=== PATIENT | male | born 1965 | race Caucasian/White ===

== ENCOUNTER 2019-04-18 10:19 | Day surgery (SDC) | payer OTHER ==
[2019-04-17 10:45] VITALS: BMI 32.8
[~2019-04-18 10:19] MED LIST: LACTATED RINGERS 1,000 ML IV SCH
[2019-04-18 10:42] VITALS: TEMP 98.2
[2019-04-18] MEDS ORDERED: LIDOCAINE 1% 20 ML VIAL (10MG/ML) FOR IV START INTRADERMA ONE (10:50)
[2019-04-18] MEDS ORDERED: LIDOCAINE 1% INJ 10MG/ML (20 ML MDV) ONE (11:20)
[2019-04-18] MEDS ORDERED: PROPOFOL 10 MG/ML 20 ML VIAL IV ONE (11:20)
--- NOTE | 2019-04-18 11:49 | P.PCN ---
Date of Procedure: 04/18/19 Description of Procedure: BRIEF HISTORY: 53-year-old male presenting evaluation of intermittent rectal pain with palpation colonoscopy. She was examined in office with no fissures or masses on rectal exam. He has a history of colonic polyps with last colonoscopy 4 years ago. Denies any change in bowel habits or blood per rectum. PROCEDURE PERFORMED: Colonoscopy with polypectomy. PREOPERATIVE DIAGNOSIS: Rectal pain, history of polyps, last colonoscopy 4 years ago. ESTIMATED BLOOD LOSS: Minimal. IV sedation per Anesthesia. PROCEDURE: After informed consent was obtained, the patient, was brought into the endoscopy unit. IV sedation was administered by Anesthesia under continuous monitoring. Digital rectal examination was normal. Initially the Olympus CF-190 flexible video colonoscope was then inserted in the rectum, gradually advanced into the cecum without any difficulty. Careful examination was performed as the scope was gradually being withdrawn. Ileocecal valve and the appendiceal orifice were visualized and appeared normal. Prep was excellent. Mucosa of the cecum, ascending colon, transverse colon, descending colon, sigmoid colon, and rectum appeared normal. Diminutive 3 mm transverse colon sessile polyp removed with cold forcep polypectomy. 2 diminutive sessile descending colon polyps measuring 2 mm removed with cold forcep polypectomy. Retroflexion was performed in the rectum and no lesions were seen, mild internal hemorrhoids. The patient tolerated the procedure well. IMPRESSION: Normal-appearing colon from rectum to cecum. 3 diminutive polyps measuring 2-3 mm removed with cold forceps. Mild internal hemorrhoids. RECOMMENDATIONS: Findings of this examination were discussed with the patient and his . Okay to resume regular diet. Trial of hyoscyamine was given in the outpatient setting if rectal pain recurs. Anticipate repeat colonoscopy in 5 years pending pathology from polypectomies. Patient to follow up with gastroenterology as needed.
[2019-04-18 12:15] VITALS: BP 107/65; PULSE 78; RESP 18
== END 2019-04-18 13:00 | disposition home or self-care (01) ==
LOC: ORWHC2ENDO 10:19
PROVIDERS: ATTEND Internal Medicine
DX: D12.3 Benign neoplasm of transverse colon (principal); D12.4 Benign neoplasm of descending colon; K64.8 Other hemorrhoids; I10 Essential (primary) hypertension; E78.5 Hyperlipidemia, unspecified; Z86.010 Personal history of colon polyps; Z79.899 Other long term (current) drug therapy; Z98.890 Other specified postprocedural states
CPT/HCPCS: 88305; 45380; J2001; J2704

== ENCOUNTER → 2019-08-08 | Outpatient (CLI) | payer OTHER ==
--- NOTE | 2019-08-09 11:50 | XR ---
EXAMINATION TYPE: XR abdomen 2V DATE OF EXAM: 08/08/2019 4:06 PM CLINICAL HISTORY: Right upper quadrant pain and shortness of breath TECHNIQUE: Upright and supine images of the abdomen were obtained. COMPARISON: None. FINDINGS: Scattered gas is seen in nondilated small bowel loops. Gas and fecal material is seen in no ndilated colon. There is no abnormal calcification appreciated. No evidence of pneumoperitoneum. The lung bases are clear and the osseous structures are intact. The lung bases are clear and the osseous structures are intact. Mild multilevel degenerative change of the spine. IMPRESSION: Nonobstructive bowel gas pattern.
== END | disposition home or self-care (01) ==
LOC: RADXRYALE 15:50
PROVIDERS: ATTEND Physician Assistant Medical
DX: R10.11 Right upper quadrant pain (principal); R06.02 Shortness of breath
CPT/HCPCS: 74019

== ENCOUNTER 2020-09-14 23:57 | Observation (INO) | payer OTHER ==
--- NOTE | 2020-09-15 00:08 | ED ---
Chest Pain HPI - General Chief Complaint: Chest Pain Stated Complaint: Chest Pain Time Seen by Provider: 09/15/20 00:07 Source: patient, RN notes reviewed, old records reviewed Mode of arrival: wheelchair Limitations: no limitations - History of Present Illness Initial Comments: This is a 55-year-old male DF for evaluation patient Dese for evaluation re garding abdominal pain severe right upper quadrant and epigastric abdominal pain radiating to his back rating to his right shoulder. Sudden onset of pain tonight and is progressively worsening. Positive vomiting. No recent fevers or no other complaints. MD Complaint: other (Epigastric and right upper quadrant abdominal pain) -: hour(s) Onset: during rest Pain Location: epigastric Pain Radiation: RUE, back Severity: moderate Severity scale (1-10): 7 Quality: sharp Consistency: constant Improves With: nothing Worsens With: nothing Context: other (None) Anginal Symptoms: nausea, vomiting Other Symptoms: acid taste in mouth, burping Treatments Prior to Arrival: none - Related Data Home Medications Medication Instructions Recorded Confirmed Fenofibrate,Micronized 200 mg PO DAILY 04/17/19 09/15/20 [Fenofibrate] Calcium Polycarbophil [Fiber-Lax] 625 mg PO DAILY 09/15/20 09/15/20 Cholecalciferol [Vitamin D3 (25 50 mcg PO DAILY 09/15/20 09/15/20 Mcg = 1000 Iu)] Olmesartan/Amlodipin/Hcthiazid 1 tab PO DAILY 09/15/20 09/15/20 [Olmesartan/Amlodipin/Hcthiazid 40-5-12.5 MG] Allergies Allergy/AdvReac Type Severity Reaction Status Date / Time No Known Allergies Allergy Verified 09/15/20 07:33 Review of Systems ROS Statement: Those systems with pertinent positive or pertinent negative responses have been documented in the HPI. ROS Other: All systems not noted in ROS Statement are negative. EKG Findings - EKG Comments: EKG Findings:: EKG sinus rhythm 73 TX 162 QRS 94 QTC 440 Past Medical History Past Medical History: Hyperlipidemia, Hypertension History of Any Multi-Drug Resistant Organisms: None Reported Past Surgical History: Hernia Repair Additional Past Surgical History / Comment(s): Colonoscopy Past Anesthesia/Blood Transfusion Reactions: No Reported Reaction Past Psychological History: No Psychological Hx Reported Smoking Status: Never smoker Past Alcohol Use History: Occasional Past Drug Use History: None Reported - Past Family History Mother Family Medical History: Cancer General Exam Limitations: no limitations General appearance: alert, in no apparent distress, anxious Head exam: Present: atraumatic, normocephalic, normal inspection Eye exam: Present: normal appearance, PERRL, EOMI. Absent: scleral icterus, conjunctival injection, periorbital swelling ENT exam: Present: normal exam, mucous membranes moist Neck exam: Present: normal inspection. Absent: tenderness, meningismus, lymphadenopathy Respiratory exam: Present: normal lung sounds bilaterally. Absent: respiratory distress, wheezes, rales, rhonchi, stridor Cardiovascular Exam: Present: regular rate, normal rhythm, normal heart sounds. Absent: systolic murmur, diastolic murmur, rubs, gallop, clicks GI/Abdominal exam: Present: soft, tenderness (RUQ), normal bowel sounds. Absent: distended, guarding, rebound, rigid Extremities exam: Present: normal inspection, full ROM, normal capillary refill. Absent: tenderness, pedal edema, joint swelling, calf tenderness Back exam: Present: normal inspection Neurological exam: Present: alert, oriented X3, CN II-XII intact Psychiatric exam: Present: normal affect, normal mood Skin exam: Present: warm, dry, intact, normal color. Absent: rash Course Vital Signs 09/14/20 09/15/20 09/15/20 23:58 00:15 00:30 Temperature 98.1 F Pulse Rate 82 74 76 Pulse Rate [ Pulse Oximetery ] Respiratory 18 18 19 Rate Blood Pressure 189/97 180/108 172/101 Blood Pressure [Left Arm] O2 Sat by Pulse 96 94 L 94 L Oximetry 09/15/20 09/15/20 09/15/20 01:05 02:23 03:00 Temperature 98.0 F Pulse Rate 79 75 Pulse Rate [ 89 Pulse Oximetery ] Respiratory 18 18 17 Rate Blood Pressure 157/93 160/94 Blood Pressure 136/81 [Left Arm] O2 Sat by Pulse 95 93 L 95 Oximetry - Reevaluation(s) Reevaluation #1: Medical record is reviewed Patient still with significant pain here in the ER Patient informed of results and questions are answered Spoke with Dr. Chen who will see patient Chest Pain MDM - [facility] 55 male DF for evaluation signs and symptoms of acute gallbladder colic, cholelithiasis. Patient be admitted for antibiotics pain control and surgical management evaluation Disposition Clinical Impression: Acute cholecystitis Disposition: ADMITTED IP TO THIS HOSP Condition: Good Is patient prescribed a controlled substance at d/c from ED?: No
[2020-09-15] MEDS ORDERED: MORPHINE SULFATE 4 MG/ML SYRINGE IVP STA (00:22)
[2020-09-15] MEDS ORDERED: SODIUM CHLORIDE 0.9% 1,000 ML IV STA (00:22)
[2020-09-15] MEDS ORDERED: PANTOPRAZOLE 40 MG/10 ML VIAL IVP STA (00:22)
[2020-09-15] MEDS ORDERED: ONDANSETRON 4 MG/2 ML VIAL IVP STA ×2 (00:22→02:16)
[2020-09-15 00:30] LABS: Basophils # (A) 0.1 k/uL (0-0.2); Basophils % (A) 1 %; Eosinophils # (A) 0.1 k/uL (0-0.7); Eosinophils % (A) 1 %; HCT 45.4 % (39.0-53.0); Lymphocytes % (A) 10 %; MCH 29.6 pg (25.0-35.0); MCHC 35.2 g/dL (31.0-37.0); Mean Platelet Volume 8.7; Monocytes # (A) 0.4 k/uL (0-1.0); Monocytes % (A) 4 %; Neutrophils # (A) 8.3 k/uL (1.3-7.7); Neutrophils % (A) 84 %; Platelet Count 216 k/uL (150-450); RDW 12.5 % (11.5-15.5)
[2020-09-15 00:46] LABS: Albumin 4.7 g/dL (3.5-5.0); Calcium 10.1 mg/dL (8.4-10.2); Magnesium 1.8 mg/dL (1.6-2.3); Potassium 3.9 mmol/L (3.5-5.1); Total Bilirubin 0.5 mg/dL (0.2-1.3); Total Protein 7.9 g/dL (6.3-8.2)
[2020-09-15 00:54] LABS: D-Dimer 0.44 mg/L FEU (<0.60); INR 0.9 (<1.2); Prothrombin Time 10.2 sec (9.0-12.0)
--- NOTE | 2020-09-15 01:22 | US ---
EXAM: US Abdomen Limited, Gallbladder CLINICAL HISTORY: ITS.REASON US Reason: pain TECHNIQUE: Real-time ultrasound of the right upper quadrant with image documentation. COMPARISON: No relevant prior studies available. FINDINGS: Liver: The liver is hyperechoic, measuring 16.2 cm in length. There is a focal hypoechoic area adjacent to the gallbladder, measuring 1.8 x 1. 5 x 2.4 cm. Gallbladder: Echogenic gallstones are noted with posterior shadowing in the gallbladder. The gallbladder wall measures 2.6 mm. No pericholecystic fluid identified. There is a reported positive sonographic Murcia sign. Common bile duct: The common bile duct is not identified. Pancreas: The pancreas is poorly identified secondary to bowel gas pattern. Right kidney: The right kidney measures 13.1 x 5.9 x 5.3 cm. Inferior vena cava: The IVC is unremarkable. Free fluid: No free fluid. IMPRESSION: 1. Cholelithiasis noted in the gallbladder. There is no gallbladder wall thickening or pericholecystic fluid. However, there is a reported positive sonographic Murcia sign. Findings are somewhat equivocal sonographically. However, acute cholecystitis cannot be excluded given these findings. Please correlate with clinical findings. Functional radionuclide imaging of the gallbladder may be performed in clinically equivocal cases. 2. The common bile duct is not definitively identified; however, no definite biliary dilatation identified. 3. Hepatic steatosis identified with incidental focal fatty sparing adjacent to the gallbladder, a common location for this appearance, as detailed above.
--- NOTE | 2020-09-15 02:11 | CT ---
EXAM: CT Angiography Chest With Intravenous Contrast CLINICAL HISTORY: ITS.REASON CT Reason: pain TECHNIQUE: Axial computed tomographic angiography images of the chest with intravenous contrast. CTDI is 33.635 mGy and DLP is 1307.65 mGy-cm. This CT exam was performed using one or more of the following dose reduction techniques: automated exposure control, adjustment of the mA and/or kV according to patient size, and/or use of iterative reconstruction technique. MIP reconstructed images were created and reviewed. COMPARISON: No relevant prior studies available. FINDINGS: Limitations: There is respiratory artifact which degrades image quality on multiple image slices, limiting evaluation of the distal subsegmental pulmonary artery branches, where affected. Pulmonary arteries: Accounting for limitations with respiratory artifact, there is no evidence for pulmonary embolism. Aorta: No acute findings. No thoracic aortic aneurysm. Lungs: Minimal dependent subsegmental changes noted bilaterally. No focal consolidation. Pleural space: Unremarkable. No significant effusion. No pneumothorax. Heart: Unremarkable. No cardiomegaly. No significant pericardial effusion. Bones/joints: Incidental mild hypertrophic degenerative changes noted at multiple levels of the thoracic spine. No acute osseous abnormality. No dislocation. Soft tissues: Unremarkable. Lymph nodes: Unremarkable. No enlarged lymph nodes. IMPRESSION: 1. Accounting for limitations with respiratory artifact, there is no evidence for pulmonary embolism. 2. Minimal dependent subsegmental presumed atelectasis noted bilaterally. No focal consolidation. No pleural effusion or pneumothorax.
--- NOTE | 2020-09-15 02:14 | CT ---
EXAM: CT Abdomen and Pelvis With Intravenous Contrast CLINICAL HISTORY: ITS.REASON CT Reason: pain TECHNIQUE: Axial computed tomography images of the abdomen and pelvis with intravenous contrast. CTDI is 33.635 mGy and DLP is 1307.65 mGy-cm. This CT exam was performed using one or more of the following dose reduction techniques: automated exposure control, adjustment of the mA and/or kV according to patient size, and/or use of iterative reconstruction technique. COMPARISON: No relevant prior studies available. FINDINGS: Limitations: There is respiratory artifact which degrades image quality on multiple image slices. Lung bases: For findings regarding the lung bases, please see the CT report of the chest performed the same day. ABDOMEN: Liver: Unremarkable. No mass. Gallbladder and bile ducts: Hyperdense sludge or noncalcified gallstones noted posteriorly in the gallbladder. No CT evidence for pericholecystic fluid or biliary dilatation. Pancreas: Unremarkable. No mass. No ductal dilation. Spleen: Unremarkable. No splenomegaly. Adrenals: Unremarkable. No mass. Kidneys and ureters: The kidneys demonstrate normal enhancement without mass, hydronephrosis or obstructive nephrolithiasis. Delayed phase imaging demonstrates normal excreted contrast in the renal collecting systems and visualized proximal ureters. Stomach and bowel: Scattered fecal material in distal small bowel loops is nonspecific and presumed normal variation. No evidence for bowel obstruction. No focal bowel mucosal abnormality. PELVIS: Appendix: A normal caliber appendix is noted in the right lower quadrant. Bladder: Unremarkable. No mass. Reproductive: Unremarkable as visualized. ABDOMEN and PELVIS: Intraperitoneal space: Unremarkable. No free air. No significant fluid collection. Bones/joints: No acute fracture. No dislocation. Soft tissues: Unremarkable. Vasculature: Unremarkable. No abdominal aortic aneurysm. Lymph nodes: Unremarkable. No enlarged lymph nodes. IMPRESSION: A normal caliber appendix is noted in the right lower quadrant. No bowel obstruction or focal bowel mucosal abnormality. No free intraperitoneal fluid or pneumoperitoneum.
[2020-09-15] MEDS ORDERED: LORazepam 2 MG/ML INJ IV STA (02:16)
[2020-09-15] MEDS ORDERED: SODIUM CHLORIDE 0.9% 500 ML 500 ML IV STA (02:16)
[2020-09-15] MEDS ORDERED: KETOROLAC 15 MG/ML 1 ML VIAL IVP STA (02:17)
[2020-09-15] MEDS ORDERED: SODIUM CHLORIDE 0.9% 1,000 ML IV ONE (02:27)
[2020-09-15] MEDS: HYDROmorphone 1 MG/ML 1 ML SYRINGE IVP PRN ×3 (09:37→19:55)
--- NOTE | 2020-09-15 12:25 | P.CONS ---
History of Present Illness - Reason for Consult Management of perioperative to hypertensive medications - History of Present Illness Pleasant 55-year-old female came in with complaints of breath intractable nausea vomiting severe abdominal pain and the right upper quadrant predominantly radiating to the back. Patient is found to have cholelithiasis with positive cholecystitis on ultrasound of the abdomen chest x-ray showed some atelectasis. Patient was admitted to general surgery service for possible cholecystectomy. Patient denied any fever chills, doesn't have any leukocytosis patient has a negative d-dimer. Patient is presently on Protonix not on any antibiotics at this time creatinine is mildly elevated to 1.25 patient is receiving IV fluids. Patient's creatinine last April was 1.1 and before that it was 0.9. Review of Systems REVIEW OF SYSTEMS: CONSTITUTIONAL: No fever, no malaise, no fatigue. HEENT: No recent visual problems or hearing problems. Denied any sore throat. CARDIOVASCULAR: No chest pain, orthopnea, PND, no palpitations, no syncope. PULMONARY: No shortness of breath, no cough, no hemoptysis. GASTROINTESTINAL: As mentioned in HPI NEUROLOGICAL: No headaches, no weakness, no numbness. HEMATOLOGICAL: Denies any bleeding or petechiae. GENITOURINARY: Denies any burning micturition, frequency, or urgency. MUSCULOSKELETAL/RHEUMATOLOGICAL: Denies any joint pain, swelling, or any muscle pain. ENDOCRINE: Denies any polyuria or polydipsia. The rest of the 14-point review of systems is negative. Past Medical History Past Medical History: Hyperlipidemia, Hypertension History of Any Multi-Drug Resistant Organisms: None Reported Past Surgical History: Hernia Repair Additional Past Surgical History / Comment(s): Colonoscopy Past Anesthesia/Blood Transfusion Reactions: No Reported Reaction Past Psychological History: No Psychological Hx Reported Smoking Status: Never smoker Past Alcohol Use History: Occasional Past Drug Use History: None Reported - Past Family History Mother Family Medical History: Cancer Medications and Allergies Home Medications Medication Instructions Recorded Confirmed Type Fenofibrate,Micronized 200 mg PO DAILY 04/17/19 09/15/20 History [Fenofibrate] Calcium Polycarbophil [Fiber-Lax] 625 mg PO DAILY 09/15/20 09/15/20 History Cholecalciferol [Vitamin D3 (25 50 mcg PO DAILY 09/15/20 09/15/20 History Mcg = 1000 Iu)] Olmesartan/Amlodipin/Hcthiazid 1 tab PO DAILY 09/15/20 09/15/20 History [Olmesartan/Amlodipin/Hcthiazid 40-5-12.5 MG] Allergies Allergy/AdvReac Type Severity Reaction Status Date / Time No Known Allergies Allergy Verified 09/15/20 07:33 Physical Exam Vitals: Vital Signs Temp Pulse Pulse Resp BP BP Pulse Ox 09/15/20 09:00 20 09/15/20 08:28 97.6 F 63 20 144/87 95 09/15/20 03:00 98.0 F 89 17 136/81 95 09/15/20 02:23 75 18 160/94 93 L 09/15/20 01:05 79 18 157/93 95 09/15/20 00:30 76 19 172/101 94 L 09/15/20 00:15 74 18 180/108 94 L 09/14/20 23:58 98.1 F 82 18 189/97 96 Intake and Output 09/14/20 09/15/20 09/15/20 22:59 06:59 14:59 Other: Voiding Method Toilet Toilet # Voids 1 Weight 102.058 kg PHYSICAL EXAMINATION: GENERAL: The patient is alert and oriented x3, not in any acute distress. Obese HEENT: Pupils are round and equally reacting to light. EOMI. No scleral icterus. No conjunctival pallor. Normocephalic, atraumatic. No pharyngeal erythema. No thyromegaly. CARDIOVASCULAR: S1 and S2 present. No murmurs, rubs, or gallops. PULMONARY: Chest is clear to auscultation, no wheezing or crackles. ABDOMEN: Soft, mild tenderness in the right upper quadrant, nondistended, normoactive bowel sounds. No palpable organomegaly. MUSCULOSKELETAL: No joint swelling or deformity. EXTREMITIES: No cyanosis, clubbing, or pedal edema. NEUROLOGICAL: Gross neurological examination did not reveal any focal deficits. SKIN: No rashes. Results CBC & Chem 7: 09/15/20 00:21 09/15/20 00:21 Labs: Abnormal Lab Results - Last 24 Hours (Table) 09/15/20 09/15/20 Range/Units 00: 00:21 Neutrophils # 8.3 H (1.3-7.7) k/uL Glucose 165 H (74-99) mg/dL Assessment and Plan Plan: Cholelithiasis per with the possibility of cholecystitis: Management as per primary service. -Hypertension to prevent perioperative hypotension also sick due to renal failure on hold off on GUIDO inhibitor and diuretic continue with amlodipine. -Mild acute renal failure expected improvement with IV fluids probably prerenal azotemia from nausea vomiting -Ruled out pulmonary embolism -Obesity
[2020-09-15] MEDS: amLODIPine 5 MG TAB PO SCH (12:53)
[2020-09-15] MEDS ORDERED: ONDANSETRON 4 MG/2 ML VIAL IVP PRN (13:07)
--- NOTE | 2020-09-15 13:15 | P.GSHP ---
History of Present Illness H&P Date: 09/15/20 CHIEF COMPLAINT: Abdominal pain HISTORY OF PRESENT ILLNESS: This is a 55-year-old male with a known history of hyperlipidemia and hypertension. He presents to the emergency room with complaints of nausea, vomiting and severe right upper quadrant abdominal pain. Abdominal ultrasound reveals cholelithiasis. No gallbladder wall thickening or pericholecystic fluid. Positive Murcia sign. Patient is admitted to the hospital for cholecystitis. Patient denies any fever, chills or sweats. PAST MEDICAL HISTORY: See list. PAST SURGICAL HISTORY: See list. MEDICATIONS: See list. ALLERGIES: See list. SOCIAL HISTORY: No illicit drug use. REVIEW OF SYSTEMS: CONSTITUTIONAL: Denies fever or chills. HEENT: Denies blurred vision, vision changes, or eye pain. Denies hemoptysis CARDIOVASCULAR: Denies chest pain or pressure. RESPIRATORY: No shortness of breath. GASTROINTESTINAL: See HPI for pertinent findings HEMATOLOGIC: Denies bleeding disorders. GENITOURINARY: Denies any blood in urine or increased urinary frequency. SKIN: Denies pruitis. Denies rash. PHYSICAL EXAM: VITAL SIGNS: Reviewed GENERAL: Well-developed in no acute distress. HEENT: No sclera icterus. Extraocular movements grossly intact. Moist buccal mucosa. Head is atraumatic, normocephalic. No nasal drainage. ABDOMEN: Soft. Nondistended. Right upper quadrant tenderness NEUROLOGIC: Alert and oriented. Cranial nerves II through XII grossly intact. LABORATORY DATA: WBC 10 hemoglobin 16 d-dimer 0.44 creatinine 1.25 LFTs normal Lipase normal IMAGING: Abdominal ultrasound reveals cholelithiasis. No gallbladder wall thickening or pericholecystic fluid. Positive Murcia sign. Acute cholecystitis cannot be excluded. Common Bile duct is not definitively identified. However no definite biliary dilation identified. Hepatic steatosis identified with incidental focal fatty sparing adjacent to the gallbladder Chest CTA negative for PE. Atelectasis bilaterally CT of abdomen and pelvis normal caliber appendix noted in the right lower quadrant. No bowel obstruction or focal bowel mucosal abnormality. No free intraperitoneal fluid or pneumoperitoneum ASSESSMENT: 1. Right upper quadrant abdominal pain with nausea and vomiting 2. Cholecystitis 3. Cholelithiasis PLAN: -Patient scheduled for laparoscopic cholecystectomy tomorrow 09/16/[address] Chen -Continue a low-fat diet for today and then nothing by mouth after midnight -Consult medicine service for medical management -Continue pain medication as needed -Continue Zofran as needed for nausea and vomiting -Continue IV fluids -GI prophylaxis Protonix and DVT prophylaxis subcu heparin Physician Astronomy Professor note has been reviewed by physician. Signing provider agrees with the documented findings, assessment, and plan of care. Past Medical History Past Medical History: Hyperlipidemia, Hypertension History of Any Multi-Drug Resistant Organisms: None Reported Past Surgical History: Hernia Repair Additional Past Surgical History / Comment(s): Colonoscopy Past Anesthesia/Blood Transfusion Reactions: No Reported Reaction Past Psychological History: No Psychological Hx Reported Smoking Status: Never smoker Past Alcohol Use History: Occasional Past Drug Use History: None Reported - Past Family History Mother Family Medical History: Cancer Medications and Allergies Home Medications Medication Instructions Recorded Confirmed Type Fenofibrate,Micronized 200 mg PO DAILY 04/17/19 09/15/20 History [Fenofibrate] Calcium Polycarbophil [Fiber-Lax] 625 mg PO DAILY 09/15/20 09/15/20 History Cholecalciferol [Vitamin D3 (25 50 mcg PO DAILY 09/15/20 09/15/20 History Mcg = 1000 Iu)] Olmesartan/Amlodipin/Hcthiazid 1 tab PO DAILY 09/15/20 09/15/20 History [Olmesartan/Amlodipin/Hcthiazid 40-5-12.5 MG] Allergies Allergy/AdvReac Type Severity Reaction Status Date / Time No Known Allergies Allergy Verified 09/15/20 07:33 Surgical - Exam Vital Signs Temp Pulse Resp BP Pulse Ox 98.1 F 82 18 189/97 96 09/14/20 23:58 09/14/20 23:58 09/14/20 23:58 09/14/20 23:58 09/14/20 23:58 Results - Labs 09/15/20 00:21 09/15/20 00:21 Abnormal Lab Results - Last 24 Hours (Table) 09/15/20 09/15/20 Range/Units 00:21 00:21 Neutrophils # 8.3 H (1.3-7.7) k/uL Glucose 165 H (74-99) mg/dL Diabetes panel 09/15/20 Range/Units 00:21 Sodium 138 (137-145) mmol/L Potassium 3.9 (3.5-5.1) mmol/L Chloride 105 (98-107) mmol/L Carbon Dioxide 25 (22-30) mmol/L BUN 20 (9-20) mg/dL Creatinine 1.25 (0.66-1.25) mg/dL Glucose 165 H (74-99) mg/dL Calcium 10.1 (8.4-10.2) mg/dL AST 24 (17-59) U/L ALT 39 (4-49) U/L Alkaline Phosphatase 54 (38-126) U/L Total Protein 7.9 (6.3-8.2) g/dL Albumin 4.7 (3.5-5.0) g/dL Calcium panel 09/15/20 Range/Units 00:21 Calcium 10.1 (8.4-10.2) mg/dL Albumin 4.7 (3.5-5.0) g/dL Pituitary panel 09/15/20 Range/Units 00:21 Sodium 138 (137-145) mmol/L Potassium 3.9 (3.5-5.1) mmol/L Chloride 105 (98-107) mmol/L Carbon Dioxide 25 (22-30) mmol/L BUN 20 (9-20) mg/dL Creatinine 1.25 (0.66-1.25) mg/dL Glucose 165 H (74-99) mg/dL Calcium 10.1 (8.4-10.2) mg/dL Adrenal panel 09/15/20 Range/Units 00:21 Sodium 138 (137-145) mmol/L Potassium 3.9 (3.5-5.1) mmol/L Chloride 105 (98-107) mmol/L Carbon Dioxide 25 (22-30) mmol/L BUN 20 (9-20) mg/dL Creatinine 1.25 (0.66-1.25) mg/dL Glucose 165 H (74-99) mg/dL Calcium 10.1 (8.4-10.2) mg/dL Total Bilirubin 0.5 (0.2-1.3) mg/dL AST 24 (17-59) U/L ALT 39 (4-49) U/L Alkaline Phosphatase 54 (38-126) U/L Total Protein 7.9 (6.3-8.2) g/dL Albumin 4.7 (3.5-5.0) g/dL
[2020-09-15] MEDS: PIPERACILLIN-TAZOBACTAM 3.375 GM in SODIUM CHLORIDE 0.9% 100 ML IVPB SCH (16:44)
[2020-09-15] MEDS: HEPARIN SODIUM,PORCINE 5,000 UNIT/ML 1 ML VIAL SQ SCH (20:04)
[2020-09-16] MEDS: PIPERACILLIN-TAZOBACTAM 3.375 GM in SODIUM CHLORIDE 0.9% 100 ML IVPB SCH ×3 (00:40→16:26)
[2020-09-16] MEDS ORDERED: LIDOCAINE 1% (10MG/ML) FOR IV START INTRADERMA PRN (06:26)
[2020-09-16] MEDS ORDERED: DEXAMETHASONE SOD PHOSPHATE 4 MG/ML 1 ML VIAL IV ONE (06:26)
[2020-09-16 06:38] LABS: Basophils % (A) 1 %; Eosinophils # (A) 0.1 k/uL (0-0.7); Eosinophils % (A) 2 %; HCT 42.2 % (39.0-53.0); HGB 14.5 gm/dL (13.0-17.5); Lymphocytes # (A) 1.6 k/uL (1.0-4.8); Lymphocytes % (A) 21 %; MCH 29.4 pg (25.0-35.0); MCHC 34.3 g/dL (31.0-37.0); MCV 85.8 fL (80.0-100.0); Mean Platelet Volume 8.8; Monocytes # (A) 0.6 k/uL (0-1.0); Monocytes % (A) 9 %; Neutrophils % (A) 66 %; Platelet Count 187 k/uL (150-450); RBC 4.92 m/uL (4.30-5.90); RDW 12.7 % (11.5-15.5); WBC 7.5 k/uL (3.8-10.6)
[2020-09-16] MEDS: HYDROmorphone 1 MG/ML 1 ML SYRINGE IVP PRN ×3 (07:27→21:02)
[2020-09-16] MEDS ORDERED: IV FLUID CONTINUATION 1,000 ML IV ONE (09:29)
[2020-09-16] MEDS: HEPARIN SODIUM,PORCINE 5,000 UNIT/ML 1 ML VIAL SQ SCH ×2 (09:38→21:03)
[2020-09-16] MEDS: LACTATED RINGERS 1,000 ML IV SCH (10:13)
[2020-09-16 10:43] LABS: African American GFR (CKD) 97.1 (60.0-200.0); Anion Gap 10.1 mmol/L (4.00-12.00); Calcium 9.4 mg/dL (8.7-10.3); Carbon Dioxide 24.9 mmol/L (21.6-31.8); Non-African American GFR(CKD) 83.8 (60.0-200.0); Potassium 3.9 mmol/L (3.5-5.5)
[2020-09-16] MEDS ORDERED: fentaNYL (PF) 50 MCG/ML 2 ML AMP ONE (11:04)
[2020-09-16] MEDS ORDERED: PHENYLEPHRINE 10 MG/ML VIAL ONE (11:04)
[2020-09-16] MEDS ORDERED: GLYCOPYRROLATE 0.2 MG/ML 2 ML VIAL ONE (11:04)
[2020-09-16] MEDS ORDERED: LIDOCAINE 1% INJ 10MG/ML (20 ML MDV) ONE (11:04)
[2020-09-16] MEDS ORDERED: PROPOFOL 10 MG/ML 20 ML VIAL IV ONE (11:04)
[2020-09-16] MEDS ORDERED: NEOSTIGMINE 1 MG/ML 10 ML VIAL ONE (11:04)
[2020-09-16] MEDS ORDERED: MIDAZOLAM 2 MG/2 ML VIAL ONE (11:04)
[2020-09-16] MEDS ORDERED: ROCURONIUM 10 MG/ML (10 ML VIAL) IV ONE (11:04)
[2020-09-16] MEDS ORDERED: KETOROLAC 15 MG/ML 1 ML VIAL ONE (11:04)
[2020-09-16] MEDS ORDERED: SUCCINYLCHOLINE CHLORIDE 100 MG/5 ML SYR IV ONE (11:04)
[2020-09-16] MEDS ORDERED: HYDROmorphone (PF) 1 MG/ML ONE (11:04)
[2020-09-16] MEDS ORDERED: HYDROmorphone 0.5 MG/0.5 ML SYRINGE IVP ONE ×2 (12:09→12:21)
[2020-09-16] MEDS ORDERED: SODIUM CHLORIDE 0.9% 1,000 ML IV ONE (12:26)
--- NOTE | 2020-09-16 14:31 | P.PN ---
Subjective Progress Note Date: 09/16/20 - Reason for Consult Management of perioperative to hypertensive medications - History of Present Illness Pleasant 55-year-old female came in with complaints of breath intractable nausea vomiting severe abdominal pain and the right upper quadrant predominantly radiating to the back. Patient is found to have cholelithiasis with positive cholecystitis on ultrasound of the abdomen chest x-ray showed some atelectasis. Patient was admitted to general surgery service for possible cholecystectomy. Patient denied any fever chills, doesn't have any leukocytosis patient has a negative d-dimer. Patient is presently on Protonix not on any antibiotics at this time creatinine is mildly elevated to 1.25 patient is receiving IV fluids. Patient's creatinine last April was 1.1 and before that it was 0.9. 09/16/2020 Patient is seen and evaluated in follow-up currently awaiting to undergo cholecystectomy with surgery today. Patient has been nothing by mouth since midnight. Ghazala slightly improved at 1.0. Current sodium is 140, potassium is 3.9, white blood count is 7.5, currently hemoglobin is 14.5. Patient is maintained on IV antibiotics in the form of Zosyn and will continue at this time. IV fluids have been discontinued and we'll continue to monitor closely. Patient will likely be initiated on clear liquids status post surgery and will monitor for tolerance. Incentive spirometer ordered and reeducated patient to continue using at least 10 times every hour while awake. Review of systems: Constitutional: No reports of fatigue, fever, or chills Cardiovascular: No reports of chest pain or palpitations Respiratory: No reports of shortness of breath or cough GI: Reports intermittent nausea : No reports of dysuria or retention Neurovascular: No reports of weakness or numbness All medications have been reviewed Objective - Vital Signs Vital signs: Vital Signs Temp 97.1 F L 09/16/20 09:24 Pulse 86 09/16/20 09:24 Resp 16 09/16/20 09:24 BP 143/85 09/16/20 09:24 Pulse Ox 94 L 09/16/20 09:24 Intake & Output 09/15/20 09/16/20 09/16/20 18:59 06:59 18:59 Intake Total 1000 600 Output Total 5 Balance 1000 595 Intake: IV 800 600 Sodium Chloride 0.9% 1, 800 000 ml @ 100 mls/hr IV . Q10H ONE Rx#:[id number] Oral 200 Output: Estimated Blood Loss 5 Other: Voiding Method Toilet Toilet # Voids 1 2 - Exam GENERAL: The patient is alert and oriented x3, not in any acute distress. Obese HEENT: Pupils are round and equally reacting to light. EOMI. No scleral icterus. No conjunctival pallor. Normocephalic, atraumatic. No pharyngeal erythema. No thyromegaly. CARDIOVASCULAR: S1 and S2 present. No murmurs, rubs, or gallops. PULMONARY: Chest is clear to auscultation, no wheezing or crackles. ABDOMEN: Soft, mild tenderness in the right upper quadrant, nondistended, normoactive bowel sounds. No palpable organomegaly. MUSCULOSKELETAL: No joint swelling or deformity. EXTREMITIES: No cyanosis, clubbing, or pedal edema. NEUROLOGICAL: Gross neurological examination did not reveal any focal deficits. SKIN: No rashes. - Labs CBC & Chem 7: 09/16/20 05:11 09/16/20 05:11 Assessment and Plan Assessment: -Cholelithiasis with the possibility of cholecystitis: Status post cholecystectomy. Postop Day 0 -Hypertension to prevent postoperative hypotension hold off on GUIDO inhibitor and diuretic, Norvasc has been resumed will repeat a.m. labs and monitor vital signs closely to resume other home medications -Mild acute renal failure expected improvement with IV fluids probably prerenal azotemia from nausea and vomiting, improving current creatinine is 1.0 with a BUN of 12 -Ruled out pulmonary embolism -Obesity Plan: Continue with current medications and symptomatic treatment. Will continue to monitor vital signs and labs closely and repeat to monitor kidney functions tomorrow. Patient is maintained on IV antibiotics and will continue. Will continue to follow along closely with surgery as patient is postop cholecystectomy. The patient will be started on clear liquids and continue to monitor for tolerance. Incentive spirometer ordered and instructed the patient to continue using 10 times every hour while awake. Amlodipine has been resumed and will continue to monitor blood pressure. Further recommendations to follow. Thank you for this consultation
[2020-09-16] MEDS: amLODIPine 5 MG TAB PO SCH (15:44)
[2020-09-16] MEDS: PANTOPRAZOLE 40 MG/10 ML VIAL IVP SCH (15:44)
--- NOTE | 2020-09-16 15:52 | P.OP ---
Date of Procedure: 09/16/20 Preoperative Diagnosis: Cholecystitis Postoperative Diagnosis: Cholecystitis Procedure(s) Performed: Laparoscopic cholecystectomy Anesthesia: PAULA Surgeon: Prosper Chen Estimated Blood Loss (ml): 5 Pathology: other (Gallbladder) Condition: stable Disposition: PACU Description of Procedure: The patient was placed on the operating table. The patient received a general endotracheal tube anesthesia. The patients abdomen was prepped and draped in the usual sterile fashion. Through an infraumbilical stab incision, the fascia of the anterior abdominal wall was grasped with a pair of Kochers and then the Veress needle was placed in the peritoneal cavity. Position of the Veress needle was confirmed with positive drop test. The abdomen was then insufflated. After adequate insufflation, the 10 mm trocar was placed in the peritoneal cavity. Following this the laparoscope was placed in the peritoneal cavity. The patient was placed in the head-up, right side up position and then a 5 mm trocar was placed in the right lateral and right subcostal position under direct visualization. A 8 mm trocar was placed in the epigastric position. The gallbladder was grasped in the fundus and infundibulum. Traction on the gallbladder was placed in the lateral and the cephalad positions. The triangle of Calot was visualized.. The cystic duct was bluntly dissected until the union of the cystic duct and common bile duct was seen. A critical view of safety was achieved. The cystic duct was then divided and sealed with the Harmonic scissors. A PDS Endoloop was then placed throughout the cystic duct stump. The cystic artery divided and sealed with the Harmonic scissors. The gallbladder was then removed from the liver bed using Harmonic scissors. The gallbladder was then extracted through the epigastric port site. Operative field was checked for any bleeding spots and Harmonic scissors was used to coagulate the liver bed. The abdomen was irrigated. The trocars were removed. The skin was closed using interrupted 3-0 Vicryl suture. Dermabond dressing were applied. The patient tolerated the procedure well.
[2020-09-17] MEDS: PIPERACILLIN-TAZOBACTAM 3.375 GM in SODIUM CHLORIDE 0.9% 100 ML IVPB SCH ×2 (00:39→09:33)
[2020-09-17] MEDS: HYDROmorphone 1 MG/ML 1 ML SYRINGE IVP PRN ×2 (00:39→05:22)
[2020-09-17] MEDS: LACTATED RINGERS 1,000 ML IV SCH (06:09)
[2020-09-17 07:25] LABS: Basophils % (A) 0 %; Eosinophils # (A) 0.1 k/uL (0-0.7); Eosinophils % (A) 1 %; HCT 40.1 % (39.0-53.0); HGB 13.4 gm/dL (13.0-17.5); Lymphocytes # (A) 1.6 k/uL (1.0-4.8); Lymphocytes % (A) 17 %; MCH 28.8 pg (25.0-35.0); MCHC 33.3 g/dL (31.0-37.0); MCV 86.6 fL (80.0-100.0); Mean Platelet Volume 8.6; Monocytes # (A) 0.8 k/uL (0-1.0); Monocytes % (A) 9 %; Neutrophils # (A) 6.8 k/uL (1.3-7.7); Neutrophils % (A) 72 %; Platelet Count 194 k/uL (150-450); RBC 4.63 m/uL (4.30-5.90); WBC 9.4 k/uL (3.8-10.6)
[2020-09-17] MEDS ORDERED: HYDROcodone/APAP 5-325MG 1 EACH TAB PO PRN (08:39)
[2020-09-17] MEDS: amLODIPine 5 MG TAB PO SCH (09:34)
[2020-09-17] MEDS: HEPARIN SODIUM,PORCINE 5,000 UNIT/ML 1 ML VIAL SQ SCH (09:34)
[2020-09-17] MEDS: PANTOPRAZOLE 40 MG/10 ML VIAL IVP SCH (09:35)
[2020-09-17 09:47] VITALS: BP 151/80; PULSE 87; RESP 18; TEMP 98.4
--- NOTE | 2020-09-17 13:55 | P.DS ---
Providers Date of admission: 09/15/20 02:27 Expected date of discharge: 09/17/20 Attending physician: Prosper Chen Consults: 09/15/20 09:44 Consult Physician Routine Consulting Provider: Dillon Koch Consult Reason/Comments: Medical management Do you want consulting provider notified?: Already Contacted [facility] Course: Discharge diagnosis 1. Acute cholecystitis status post laparoscopic cholecystectomy Hospital course This is a 55-year-old male with a known history of hyperlipidemia and hypertension. He presents to the emergency room with complaints of nausea, vomiting and severe right upper quadrant abdominal pain. Abdominal ultrasound reveals cholelithiasis. No gallbladder wall thickening or pericholecystic fluid. Positive Murcia sign. Patient is status post laparoscopic cholecystectomy. He has tolerated surgery well. Pain is controlled. He is tolerating diet. He is afebrile. He is passing gas. He is up and ambulating. He is stable for discharge. Please refer to chart for any further details. Physician Choreography Director note has been reviewed by physician. Signing provider agrees with the documented findings, assessment, and plan of care. Patient Condition at Discharge: Stable Plan - Discharge Summary Discharge Rx Participant: No New Discharge Prescriptions: New Docusate [Colace] 100 mg PO BID #30 capsule HYDROcodone/APAP 5-325MG [Brandon 5-325] 1 tab PO Q6HR PRN 3 Days #12 tab PRN Reason: Pain Continue Fenofibrate,Micronized [Fenofibrate] 200 mg PO DAILY Cholecalciferol [Vitamin D3 (25 Mcg = 1000 Iu)] 50 mcg PO DAILY Calcium Polycarbophil [Fiber-Lax] 625 mg PO DAILY Olmesartan/Amlodipin/Hcthiazid [Olmesartan/Amlodipin/Hcthiazid 40-5-12.5 MG] 1 tab PO DAILY Discharge Medication List Fenofibrate,Micronized [Fenofibrate] 200 mg PO DAILY 04/17/19 [History] Calcium Polycarbophil [Fiber-Lax] 625 mg PO DAILY 09/15/20 [History] Cholecalciferol [Vitamin D3 (25 Mcg = 1000 Iu)] 50 mcg PO DAILY 09/15/20 [History] Olmesartan/Amlodipin/Hcthiazid [Olmesartan/Amlodipin/Hcthiazid 40-5-12.5 MG] 1 tab PO DAILY 09/15/20 [History] Docusate [Colace] 100 mg PO BID #30 capsule 09/17/20 [Rx] HYDROcodone/APAP 5-325MG [Brandon 5-325] 1 tab PO Q6HR PRN 3 Days #12 tab 09/17/20 [Rx] Follow up Appointment(s)/Referral(s): Topher Grayson DO [Primary Care Provider] - 1-2 days Prosper Chen MD [STAFF PHYSICIAN] - 1 Week Activity/Diet/Wound Care/Special Instructions: No driving while taking Brandon No lifting over 10 pounds You may shower. No soaking or tub baths for 2 weeks Very light activity until you are reevaluated at your follow up appointment with your surgeon Discharge Disposition: HOME SELF-CARE
--- NOTE | 2020-09-17 14:47 | P.PN ---
Subjective Progress Note Date: 09/17/20 - Reason for Consult Management of perioperative to hypertensive medications - History of Present Illness Pleasant 55-year-old female came in with complaints of breath intractable nausea vomiting severe abdominal pain and the right upper quadrant predominantly radiating to the back. Patient is found to have cholelithiasis with positive cholecystitis on ultrasound of the abdomen chest x-ray showed some atelectasis. Patient was admitted to general surgery service for possible cholecystectomy. Patient denied any fever chills, doesn't have any leukocytosis patient has a negative d-dimer. Patient is presently on Protonix not on any antibiotics at this time creatinine is mildly elevated to 1.25 patient is receiving IV fluids. Patient's creatinine last April was 1.1 and before that it was 0.9. 09/16/2020 Patient is seen and evaluated in follow-up currently awaiting to undergo cholecystectomy with surgery today. Patient has been nothing by mouth since midnight. Creatinine slightly improved at 1.0. Current sodium is 140, potassium is 3.9, white blood count is 7.5, currently hemoglobin is 14.5. Patient is maintained on IV antibiotics in the form of Zosyn and will continue at this time. IV fluids have been discontinued and we'll continue to monitor closely. Patient will likely be initiated on clear liquids status post surgery and will monitor for tolerance. Incentive spirometer ordered and reeducated patient to continue using at least 10 times every hour while awake. 09/17/2020 Patient is seen in follow-up this morning stating he feels great and would like to go home. Patient tolerating diet and was currently advanced. Patient states he is passing gas although has not had a bowel movement yet. Surgical sites appear dry and intact with surgical glue noted. Patient does have an incentive spirometer at the bedside and instructed the patient to continue using at least 10 times every hour while awake even in the outpatient setting. Patient states he has been using this and has been up and walking to the bathroom with no difficulties. Review of systems: Constitutional: No reports of fatigue, fever, or chills Cardiovascular: No reports of chest pain or palpitations Respiratory: No reports of shortness of breath or cough GI: No reports of nausea, vomiting, or diarrhea, reports passing gas : No reports of dysuria or retention Neurovascular: No reports of weakness or numbness All medications have been reviewed Objective - Vital Signs Vital signs: Vital Signs Temp 97.9 F 09/17/20 03:00 Pulse 98 09/17/20 03:00 Resp 16 09/17/20 03:00 BP 160/98 09/17/20 03:00 Pulse Ox 92 L 09/17/20 03:00 Intake & Output 09/16/20 09/17/20 09/17/20 18:59 06:59 18:59 Intake Total 900 Output Total 5 Balance 895 Intake: IV 900 Output: Estimated Blood Loss 5 Other: Voiding Method Toilet # Voids 1 2 - Exam GENERAL: The patient is alert and oriented x3, not in any acute distress. Obese HEENT: Pupils are round and equally reacting to light. EOMI. No scleral icterus. No conjunctival pallor. Normocephalic, atraumatic. No pharyngeal erythema. No thyromegaly. CARDIOVASCULAR: S1 and S2 present. No murmurs, rubs, or gallops. PULMONARY: Chest is clear to auscultation, no wheezing or crackles. ABDOMEN: Soft, nontender, nondistended, normoactive bowel sounds. No palpable organomegaly. Surgical sites are dry with surgical glue noted MUSCULOSKELETAL: No joint swelling or deformity. EXTREMITIES: No cyanosis, clubbing, or pedal edema. NEUROLOGICAL: Gross neurological examination did not reveal any focal deficits. SKIN: No rashes. - Labs CBC & Chem 7: 09/17/20 06:30 09/16/20 05:11 Assessment and Plan Assessment: -Cholelithiasis with the possibility of cholecystitis: Status post cholecystectomy. Postop Day 1 -Hypertension: Norvasc has been resumed will resume other home medications -Mild acute renal failure probably prerenal azotemia from nausea and vomiting, improving -Ruled out pulmonary embolism -Obesity Plan: Continue with current medications and symptomatic treatment. Will continue to monitor vital signs and labs closely. Diet was advanced this morning and tolerated per surgery. Will resume home medications. Will continue to follow along closely with surgery and hospitalization. Encourage incentive spirometer and increasing activity as tolerated. Further recommendations to follow. Patient states he would like to be discharged today. Thank you for this consultation
[2020-09-17 16:34] LABS: African American GFR (CKD) 97.1 (60.0-200.0); Anion Gap 9.9 mmol/L (4.00-12.00); Calcium 9.2 mg/dL (8.7-10.3); Carbon Dioxide 26.1 mmol/L (21.6-31.8); Non-African American GFR(CKD) 83.8 (60.0-200.0)
== END 2020-09-17 15:15 | disposition home or self-care (01) ==
LOC: EC 23:57 → 1SOBS 09-15 02:27 → 6NMEDSUR 09-15 17:46
PROVIDERS: ADMIT Surgery; ATTEND Surgery
DX: K80.00 Calculus of gallbladder with acute cholecystitis without obstruction (principal); E78.5 Hyperlipidemia, unspecified; I10 Essential (primary) hypertension; J98.11 Atelectasis; Z98.890 Other specified postprocedural states; Z80.9 Family history of malignant neoplasm, unspecified; Z79.899 Other long term (current) drug therapy; N17.9 Acute kidney failure, unspecified; E66.9 Obesity, unspecified; Z68.35 Body mass index [BMI] 35.0-35.9, adult
CPT/HCPCS: 96376 ×3; 96361 ×2; 96375 ×3; 96374; 99285; 36415; 94760; 93005; 85379; 88304; 83880; 80053; 80048 ×2; 83690; 83735; 84484; 85025 ×3; 85610; 85730; 76705; 71275; 74177; 47562; G0378 ×4; J2543 ×3; J2250; J2060; J2270; J1644 ×3; J1100; J2370; J2710; J2405 ×2; J2001; J3010; J1170 ×4; J1885 ×2; J0330; J2704; C9113 ×2; Q9967

== ENCOUNTER → 2021-09-24 | Outpatient (CLI) | payer OTHER ==
--- NOTE | 2021-09-24 16:27 | MR ---
EXAMINATION TYPE: MR knee RT wo con DATE OF EXAM: 09/24/2021 COMPARISON: None. HISTORY: Right knee pain x 5 mos S/P fall. TECHNIQUE: Multiplanar, multisequence imaging of the right knee is performed without IV contrast. FINDINGS: MEDIAL MENISCUS: Truncated appearance posterior horn with abnormal signal along the superior and infe rior articular surface margins. LATERAL MENISCUS: Anterior and posterior horns are intact without tear. CRUCIATE LIGAMENTS: The anterior and posterior cruciate ligaments are intact and unremarkable. COLLATERAL LIGAMENTS: The medial collateral ligament and lateral collateral ligament complex are inta ct and unremarkable. EXTENSOR MECHANISM: Visualized quadriceps and patellar tendons are intact. EFFUSION: Small to borderline moderate size suprapatellar joint effusion. POPLITEAL CYST: No popliteal/bello cyst. TRICOMPARTMENT SPACES: Mild tricompartment joint space loss and spurring. CARTILAGE: Some mild fissuring and cartilaginous loss medial tibiofemoral compartment. No significant chondral malacia patella. BONE MARROW SIGNAL: No focal abnormal marrow signal is appreciated. OTHER: No additional significant abnormality is appreciated. IMPRESSION: 1. Full-thickness tear posterior horn medial meniscus. 2. Small to moderate sized suprapatellar joint effusion. 3. Mild tricompartment degenerative changes as detailed above.
== END | disposition home or self-care (01) ==
LOC: RADMRIMAIN 14:28
PROVIDERS: ATTEND Orthopaedic Surgery
DX: M17.11 Unilateral primary osteoarthritis, right knee (principal); M23.321 Other meniscus derangements, posterior horn of medial meniscus, right knee; M25.461 Effusion, right knee

== ENCOUNTER → 2022-07-26 | Outpatient (CLI) | payer OTHER ==
--- NOTE | 2022-07-26 17:03 | XR ---
EXAMINATION TYPE: XR cervical spine comp DATE OF EXAM: 07/26/2022 COMPARISON: None HISTORY: Cervicalgia TECHNIQUE: 5 view cervical spine FINDINGS: Prevertebral space appears somewhat prominent anterior to C5-C6 and C7. Consider follow-up soft tissue CT neck. No suspicious soft tissue abnormality clearly evident. The disc heights appear p reserved prevertebral body heights are preserved. Posterior spinal lamellar line is intact. Foramen a re patent. IMPRESSION: 1. No acute osseous abnormality. 2. The prevertebral soft tissues are somewhat prominent anterior to C5 C6 C7 levels. Consider soft ti ssue CT neck for additional evaluation. Alternatively, MRI cervical spine could be performed.
--- NOTE | 2022-07-26 17:04 | XR ---
EXAMINATION TYPE: XR lumbosacral spine min 4V DATE OF EXAM: 07/26/2022 COMPARISON: None HISTORY: low back pain TECHNIQUE: 5 view lumbar spine FINDINGS: Some mild degenerative disc changes present L5-S1. Remaining disc heights are preserved. Ve rtebral body heights are preserved. Mild facet degenerative changes in the lower lumbar spine. There are 5 lumbar-type vertebral bodies. The pedicles are intact. IMPRESSION: 1. Mild lower lumbar spine facet degenerative change. 2. Mild degenerative disc change L5-S1
== END | disposition home or self-care (01) ==
LOC: RADXRYALE 11:52
PROVIDERS: ATTEND Physician Assistant Medical
DX: M47.816 Spondylosis without myelopathy or radiculopathy, lumbar region (principal); M51.37 Other intervertebral disc degeneration, lumbosacral region; M54.2 Cervicalgia; M54.50 Low back pain, unspecified
CPT/HCPCS: 72050; 72110

== ENCOUNTER → 2022-09-06 | Outpatient (CLI) | payer OTHER ==
--- NOTE | 2022-09-06 21:59 | MR ---
EXAMINATION TYPE: MR cspine/lspine wo con DATE OF EXAM: 09/06/2022 5:05 PM CLINICAL INDICATION:Male, 57 years old with history of M54.16, M51.36, M54.12, M50.30, R93.89; COMPARISON: None TECHNIQUE: Multi planar, multi sequence imaging was performed utilizing: T1-weighted, T2-weighted, a nd turbo inversion recovery imaging of the cervical and lumbar spine. MR contrast: IV Contrast:None. FINDINGS: CERVICAL: Motion limits evaluation. Alignment: The cervical vertebral bodies have preserved heights. Alignment is within normal limits gi zoë patient positioning. Bones: Bone signal is within normal limits. Minimal osteophyte formation throughout the spine. Cord: The spinal cord is unremarkable with regards to their signal intensity and morphology. Discs: Intervertebral disc signal is maintained. C2-C3: No significant disc pathology. The spinal canal is patent. No neural foraminal stenosis. C3-C4: No significant disc pathology. The spinal canal is patent. Bilateral facet and uncovertebral joint arthropathy are present with mild bilateral neural foraminal stenosis. C4-C5: Central disc protrusion which abuts the anterior spinal cord. Disc material extends both super iorly 6 mm and inferiorly 2 mm. Bilateral facet and uncovertebral joint arthropathy are present with moderate bilateral neural foraminal stenosis. C5-C6: A disc osteophyte complex is present with mild spinal canal stenosis. Bilateral facet and unc overtebral joint arthropathy are present with moderate bilateral neural foraminal stenosis. C6-C7: No significant disc pathology. The spinal canal is patent. No neural foraminal stenosis. C7-T1: No significant disc pathology. The spinal canal is patent. No neural foraminal stenosis. LUMBAR: Alignment: The lumbar vertebral bodies have preserved heights and alignment. There is sacralization of the L5 vertebrae. Cord: The conus medullaris and the distal spinal cord appear unremarkable with regards to their signa l intensity and morphology. Bones/Discs: High T1/high T2 signal L5 and T12 most consistent vertebral body hemangiomas. Multilevel degenerative disc disease is noted and most pronounced at the L3-L4 and L4-L5. Schmorl's node at the inferior endplate of T11 noted. Disc desiccation L3-L4. L1-L2: No significant disc pathology. Spinal canal is patent. The neural foramen are patent. L2-L3: No significant disc pathology. Spinal canal is patent. The neural foramen are patent. L3-L4: No significant disc pathology. Spinal canal is patent. Bilateral facet arthropathy is present. The neural foramen are mildly narrowed. L4-L5: No significant disc pathology. Spinal canal is patent. Bilateral facet arthropathy is present. The neural foramen are mildly narrowed. L5-S1: No significant disc pathology. Spinal canal is patent. Bilateral facet arthropathy is present. The neural foramen are patent. Other findings: Presacral high T2 low T1 signal cyst measuring up to 1.5 cm. IMPRESSION: 1. C4-C5 disc herniation which abuts the anterior spinal cord. Disc material migrates both superiorl y and inferiorly. Cord signal is maintained. 2. Multilevel disc degeneration changes of the cervical spine with moderate C4-C5 and C5-C6 neural f oraminal stenosis. 3. No evidence for significant spinal canal neural foraminal stenosis of the lumbar spine. 4. Simple appearing presacral cyst measuring 1.5 cm.
== END | disposition home or self-care (01) ==
LOC: RADMRIMAIN 15:42
PROVIDERS: ATTEND Physician Assistant Medical
DX: M50.121 Cervical disc disorder at C4-C5 level with radiculopathy (principal); M51.36 Other intervertebral disc degeneration, lumbar region; D16.8 Benign neoplasm of pelvic bones, sacrum and coccyx; M99.71 Connective tissue and disc stenosis of intervertebral foramina of cervical region
CPT/HCPCS: 72141; 72148

== ENCOUNTER → 2023-04-24 | Outpatient (CLI) | payer OTHER ==
--- NOTE | 2023-04-24 11:43 | US ---
EXAMINATION TYPE: US carotid duplex BILAT DATE OF EXAM: 04/24/2023 COMPARISON: NONE CLINICAL INDICATION: Male, 57 years old with history of E78.2 MIXED HYPERLIPIDEMIA; TECHNIQUE: Carotid duplex ultrasound examination. Indirect Doppler criteria was utilized. FINDINGS: EXAM MEASUREMENTS: RIGHT: Peak Systolic Velocity (PSV) cm/sec ----- Right CCA: 80.9 ----- Right ICA: 83.0 ----- Right ECA: 171.3 ICA/CCA ratio: 1.0 RIGHT: End Diastole cm/sec ----- Right CCA: 18.2 ----- Right ICA: 25.5 ----- Right ECA: 23.5 LEFT: Peak Systolic Velocity (PSV) cm/sec ----- Left CCA: 85.5 ----- Left ICA: 75.2 ----- Left ECA: 150.4 ICA/CCA ratio: 0.9 LEFT: End Diastole cm/sec ----- Left CCA: 23.9 ----- Left ICA: 27.7 ----- Left ECA: 31.8 VERTEBRALS (direction of flow): Right Vertebral: Antegrade Left Vertebral: Antegrade Rhythm: Normal No significant stenosis IMPRESSION: Less than 50% stenosis of the bilateral carotid bifurcations. Criteria for Assigning % of Stenosis / Diameter reduction (Estimation based on the indirect measurements of the internal carotid artery velocities (ICA PSV). 1. Normal (no stenosis)=ICA PSV < 125 cm/s: ratio < 2.0: ICA EDV<40 cm/s. 2. Less than 50% stenosis=ICA PSV < 125 cm/s: ratio < 2.0: ICA EDV<40 cm/s. 3. 50 to 69% stenosis=ICA PSV of 125 to 230 cm/s: ration 2.0 ? 4.0: ICA EDV 40-100 cm/s. 4. Greater than 70% stenosis to near occlusion= ICA PSV > 230 cm/s: ratio > 4.0: ICA EDV > 100 cm/s. 5. Near occlusion= ICA PSV velocities may be low or undetectable: variable ratio and ICA EDV. 6. Total occlusion=unable to detect flow.
== END | disposition home or self-care (01) ==
LOC: RADUSWWP 10:44
PROVIDERS: ATTEND Family Medicine
DX: I65.23 Occlusion and stenosis of bilateral carotid arteries (principal); E78.2 Mixed hyperlipidemia; I10 Essential (primary) hypertension; R51.9 Headache, unspecified
CPT/HCPCS: 93880

== ENCOUNTER → 2024-01-10 | Outpatient (CLI) | payer MEDICARE ==
[2024-01-10 13:37] VITALS: BP 143/86; PULSE 80; RESP 16; TEMP 98.2
--- NOTE | 2024-01-10 14:51 | P.SLEEP ---
History of Present Illness DATE: 01/10/2024 CONSULTATION/NEW PATIENT EVALUATION HISTORY OF PRESENT ILLNESS/SLEEP-WAKE EVALUATION: 58-year-old gentleman had b een evaluated in the sleep center for obstructive sleep apnea hypopnea syndrome. Patient has history of obstructive sleep apnea for about 10 years. He continues to use his CPAP equipment every night, does not feel comfortable with CPAP mask and has multiple awakenings from sleep and snoring. SLEEP SCHEDULE: Usually sleep schedule from 1012 midnight until 6:30 AM. FALLING ASLEEP: No problems with falling asleep. DURING SLEEP: Patient snores and wakes up up to 5 times during the night while using his CPAP. No history of hypnogogical hallucinations, sleep paralysis, or cataplexy. DURING THE DAY/WAKE STATE: In the morning patient wake up tired, has difficulties to pay attention, has problems with memory, concentration, irritability and anxiety. [place] sleepiness scale is 6. Patient usually does not take naps. PAST MEDICAL HISTORY: Hypertension, diabetes mellitus, anxiety, hyperlipidemia, arthritis. PAST SURGICAL HISTORY: Cholecystectomy, right knee surgery for meniscus problems 2021. MEDICATIONS: Please see below. SOCIAL HISTORY: Please see below. FAMILY HISTORY: Hypertension, hyperlipidemia, diabetes, cancer. REVIEW OF SYSTEMS: Multiple awakenings from sleep while using CPAP. No fevers. No double vision. No recent chest pain. No shortness of breath. No abdominal pain. No bleeding episodes. No blood in urine. No seizure episodes. PHYSICAL EXAMINATION: GENERAL: A pleasant patient without any distress. VITAL SIGNS: Please see below, weight 234 pounds, BMI 36.6. HEENT: PERRLA, EOMI. Evaluation of oropharynx showed tongue protrudes midline, low position of soft palate Mallampati 4. NECK: Supple. No JVD. Thyroid is not palpable. 18.5 inches in circumference. LUNGS: Clear to percussion and to auscultation. Good air exchange. No wheezing or rhonchi. HEART: S1, S2 regular. No murmurs, gallops or rubs. ABDOMEN: Soft and nontender. Bowel sounds are present. No organomegaly appreciated. EXTREMITIES: No clubbing or cyanosis. GAS METER READER: Awake, alert, and oriented x3. Cranial nerves 2 to 7 intact. There is no fasciculation or atrophy noted. No focal deficits observed. ASSESSMENT: 1. Obstructive sleep apnea hypopnea syndrome for 10 years. Patient continued to use his CPAP equipment every night for the whole night, but wakes up from sleep up to 5 times. Extremely low position of soft palate, wide neck 18.5 inches in circumference. 2. Obesity, BMI 36.6. 3. Hypertension. 4. Anxiety. 5 diabetes mellitus. 6 . History of arthritis. 7. Status post right knee surgery for meniscus problems. 8. Hyperlipidemia. 9 . Status post cholecystectomy. PLAN: 1. Patient will continue to use his CPAP equipment every night for the whole night, I adjusted CPAP unit to AutoPap regimen with range of the pressure 8-14. 2. CPAP/BiPAP titration of effective pressure at the present time and to find comfortable mask for the patient. 3. Preferable position during sleep on the side. 4. No driving if patient feels any sleepiness. Patient is aware of civil and criminal liability for unsafe driving. 5. Sleep hygiene with regular sleep time for at least 7.5-8 hours. 6. Watching and losing weight. 7. Be will get results of previous sleep studies. Thank you very much for referring this patient for consultation. Sincerely, Rishi Reyes MD, PhD, FAASM. Diplomat of [employer], Sleep Medicine Board by [employer] [facility] Rn of [facility] [place] Past Medical History Past Medical History: Hyperlipidemia, Hypertension, Sleep Apnea/CPAP/BIPAP History of Any Multi-Drug Resistant Organisms: None Reported Past Surgical History: Cholecystectomy, Hernia Repair Additional Past Surgical History / Comment(s): Colonoscopy Past Anesthesia/Blood Transfusion Reactions: No Reported Reaction Past Psychological History: No Psychological Hx Reported Smoking Status: Former smoker Past Alcohol Use History: Occasional Past Drug Use History: None Reported - Past Family History Mother Family Medical History: Cancer Additional Family Medical History / Comment(s): ulcers Father Family Medical History: Coronary Artery Disease (CAD), Diabetes Mellitus, Hypertension Medications and Allergies Home Medications Medication Instructions Recorded Confirmed Type Fenofibrate,Micronized 200 mg PO DAILY 04/17/19 01/10/24 History [Fenofibrate] Cholecalciferol [Vitamin D3 (25 50 mcg PO DAILY 09/15/20 01/10/24 History Mcg = 1000 Iu)] Olmesartan/Amlodipin/Hcthiazid 1 tab PO DAILY 09/15/20 01/10/24 History [Olmesartan/Amlodipin/Hcthiazid 40-5-12.5 MG] calcium polycarbophiL [Fiber-Lax] 625 mg PO DAILY 09/15/20 09/15/20 History Docusate [Colace] 100 mg PO BID #30 capsule 09/17/20 Rx HYDROcodone/APAP 5-325MG [[place] 1 tab PO Q6HR PRN 3 Days #12 tab 09/17/20 Rx 5-325] Escitalopram [Lexapro] 10 mg PO DAILY 01/10/24 01/10/24 History Rosuvastatin [Crestor] 10 mg PO DAILY 01/10/24 01/10/24 History Allergies Allergy/AdvReac Type Severity Reaction Status Date / Time No Known Allergies Allergy Verified 09/15/20 07:33 Physical Exam Vitals: Vital Signs Temp Pulse Resp BP Pulse Ox 01/10/24 13:26 98.2 F 80 16 143/86 96 Intake and Output 01/09/24 01/10/24 01/10/24 22:59 06:59 14:59 Other: Weight 106.141 kg Sleep Note - Sleep Data ESS Total: 6 - Sleep Note Sleep Note: Temperature: 98.2 F Pulse Rate: 80 Respiratory Rate: 16 Blood Pressure: 143/86 SpO2: 96 Height: 5 ft 7 in Weight: 106.141 kg BMI: Neck Circumference: 18.5
== END ==
LOC: 3 N SLEEP 13:05
PROVIDERS: ATTEND Internal Medicine
DX: G47.33 Obstructive sleep apnea (adult) (pediatric) (principal); E66.9 Obesity, unspecified; I10 Essential (primary) hypertension; F41.9 Anxiety disorder, unspecified; E11.9 Type 2 diabetes mellitus without complications; E78.5 Hyperlipidemia, unspecified; M19.90 Unspecified osteoarthritis, unspecified site; F12.90 Cannabis use, unspecified, uncomplicated; Z98.890 Other specified postprocedural states; Z68.36 Body mass index [BMI] 36.0-36.9, adult; Z90.49 Acquired absence of other specified parts of digestive tract; Z99.89 Dependence on other enabling machines and devices
CPT/HCPCS: 99211

== ENCOUNTER 2024-02-21 19:34 | Outpatient (CLI) | payer MEDICARE ==
--- NOTE | 2024-02-22 11:18 | P.PCN ---
Description of Procedure: CLINICAL: Titration with positive air pressure has been done for correction of respiratory abnormalities during sleep. DESCRIPTION OF PROCEDURE: The standard montage for clinical polysomnography included the electroencephalogram, the electrocardiogram, the mentalis surface electromyography and Lead II cardiography. The respiratory battery consisted of measurements of nasal /buccal air flow, pressure transducer measurements from the nose, thoracic and /or abdominal effort and intercostal surface electromyography. Video monitoring has been done to check for any parasomnia events. Nocturnal oxyhemoglobin saturations were obtained by finger oximetry. Step-zaragoza titration with positive airway pressure was utilized to control respiratory events. Raw data of sleep recording has been reviewed and is adequate. RESULTS: Sleep efficiency was practically normal 88.7%. Latency to sleep onset was normal 17.0 minutes.]. Sleep architecture showed stage N1 was normal 6.6%, Delta sleep was normal 20.7%, REM sleep was normal 23.8%. Heart rate was minimum 69 BPM, maximum 80 BPM, average 74 BPM. EMG showed 0.9 periodic limb movements per hour with 0 micriarousals per hour. PAP titration have been done with CPAP up to the pressure 13 cm H2O. The best results were at the pressure 11 cm H2O. Apnea hypopnea index reduced to 0. IMPRESSION: 1. Obstructive sleep apnea hypopnea syndrome on controle with PAP treatment. 2. No significant periodic limb movements have been documented. Please see other impressions from consultation. PLAN: 1. The patient will have treatment with positive air pressure equipment with the level of pressure AutoPAP 5-13 cm H2O and should use it every night for the whole night. 2. Watching and losing weight. 3. Sleep hygiene with regular time in bed for at least 8 hours. 4. No driving if feeling any sleepiness. 5. I will see the patient for follow up visit to explain the results of the test, recommendations, check compliance with treatment and make any necessary adjustment related to mask fitting, pressure and humidification. Thank you very much for allowing me to participate in the management of your patient. Sincerely, Rishi Reyes MD, PhD, FAASM Diplomat of [employer] Sleep Medicine Board of [place] [employer] Manager [facility] [place] cc: Carie Gordon PA-C
== END 2024-02-22 05:30 | disposition home or self-care (01) ==
LOC: 3 N SLEEP 19:34
PROVIDERS: ATTEND Internal Medicine
DX: G47.33 Obstructive sleep apnea (adult) (pediatric) (principal)
CPT/HCPCS: 95811

== ENCOUNTER → 2024-07-03 | Outpatient (CLI) | payer MEDICARE ==
[2024-07-03 16:22] VITALS: BP 136/87; PULSE 94; RESP 16; TEMP 98.1
--- NOTE | 2024-07-03 16:42 | P.PROGSL ---
Subjective DATE: 07/03/2024 FOLLOW UP VISIT. Patient with obstructive sleep apnea hypopnea syndrome return to sleep center for follow-up visit. This is first visit after patient received new CPAP equipment. Information from previous visit have been reviewed. Patient is using PAP equipment every night for the whole night, getting PAP supplies in time. The patient does not have significant problems with the mask, PAP unit. [place] sleepiness scale is 5, which is normal. I checked information from PAP unit. PAP unit pressure 5-13, average 8.9 cm H2O. Usage is 100% for more then 4 hours, average 7.25 hours per night. Leak is 19.9 l/m, which is in acceptable range. Apnea Hypopnea Index is 1.6, which is normal. MEDICATIONS have been reviewed, please see below. During physical exam: GENERAL: A pleasant patient without any distress. VITAL SIGNS: Please see below, weight is 227 lbs. HEENT: PERRLA, EOMI.low position of soft palate, Mallapati 4 . NECK: Supple. No JVD. LUNGS: Clear to percussion and to auscultation. Good air exchange. No wheezing or rhonchi. HEART: S1, S2 regular. ABDOMEN: Soft and nontender.[] EXTREMITIES: No clubbing or cyanosis. EXPLOITATION ANALYST: Awake, alert, and oriented x3. No focal deficit. Impressions: 1. Obstructive sleep apnea-hypopnea syndrome. Patient demonstrated great compliance with treatment, benefiting from treatment. 2. Obesity. 3. Hypertension. 4. Diabetes mellitus. 5. Anxiety. 6. History of arthritis. 7. Status post right knee surgery for meniscus problems. 8. Hyperlipidemia. 9. Status post cholecystectomy. I teach the patient how to adjust temperature of heated humidifier and temperature in heated tube. Plan: 1. Continue using PAP equipment every night for the whole night. 2. Sleep hygiene with regular time in bed for at least 7.5-8 hours 3. PAP unit should stay lower then position of the head. 4. Advised patient to remove all remaining water from humidifier canister daily and make it dry after each usage. Refill canister with fresh distilled water before each usage. 5. Watching and losing weight. 6. Precautions related to driving. No driving if feel any sleepiness. 7. I will maintain prescription for PAP supplies including mask, tube, filters. 8. Follow up visit in 8 months or earlier if patient has any problems. Thank you very much for allowing me to participate in the management of your patient. Rishi Reyes MD, PhD, FAASM. Diplomat of [place] [employer], Sleep Medicine Board by [employer] Wall Covering Installer of [facility] [place] cc: Topher Grayson DO Objective - Vital Signs Vital Signs: Vital Signs Temp 98.1 F 07/03/24 16:20 Pulse 94 07/03/24 16:20 Resp 16 07/03/24 16:20 BP 136/87 07/03/24 16:20 Pulse Ox 96 07/03/24 16:20 FiO2 Home Medications: Home Medications Medication Instructions Recorded Confirmed Type Fenofibrate,Micronized 200 mg PO DAILY 04/17/19 01/10/24 History [Fenofibrate] Cholecalciferol [Vitamin D3 (25 50 mcg PO DAILY 09/15/20 01/10/24 History Mcg = 1000 Iu)] Olmesartan/Amlodipin/Hcthiazid 1 tab PO DAILY 09/15/20 01/10/24 History [Olmesartan/Amlodipin/Hcthiazid 40-5-12.5 MG] calcium polycarbophiL [Fiber-Lax] 625 mg PO DAILY 09/15/20 09/15/20 History Docusate [Colace] 100 mg PO BID #30 capsule 09/17/20 Rx HYDROcodone/APAP 5-325MG [[place] 1 tab PO Q6HR PRN 3 Days #12 tab 09/17/20 Rx 5-325] Escitalopram [Lexapro] 10 mg PO DAILY 01/10/24 01/10/24 History Rosuvastatin [Crestor] 10 mg PO DAILY 01/10/24 01/10/24 History
== END ==
LOC: 3 N SLEEP 15:15
PROVIDERS: ATTEND Internal Medicine
DX: G47.33 Obstructive sleep apnea (adult) (pediatric) (principal); E66.9 Obesity, unspecified; I10 Essential (primary) hypertension; E11.9 Type 2 diabetes mellitus without complications; F41.9 Anxiety disorder, unspecified; E78.5 Hyperlipidemia, unspecified; Z90.49 Acquired absence of other specified parts of digestive tract; Z98.890 Other specified postprocedural states; Z87.39 Personal history of other diseases of the musculoskeletal system and connective tissue; Z99.89 Dependence on other enabling machines and devices; Z79.899 Other long term (current) drug therapy
CPT/HCPCS: 99212

== ENCOUNTER → 2024-09-10 | Outpatient (CLI) | payer MEDICARE ==
--- NOTE | 2024-09-10 15:31 | XR ---
EXAMINATION TYPE: XR chest 2V DATE OF EXAM: 09/10/2024 3:14 PM COMPARISON: None. CLINICAL INDICATION: Male, 59 years old with history of J180 BRONCHOPNEUMONIA, TECHNIQUE: XR chest 2V view(s) obtained. FINDINGS: The heart size is normal. The pulmonary vasculature is normal. There is a left upper lobe infiltrate. Correlate for pneumonia. Follow-up is recommended. IMPRESSION: 1. Left upper lobe infiltrate. Correlate for pneumonia. Follow-up recommended [facility], , 09/10/2024 3:28 PM
== END | disposition home or self-care (01) ==
LOC: RADXRYALE 14:52
PROVIDERS: ATTEND Physician Assistant Medical
DX: J18.0 Bronchopneumonia, unspecified organism (principal); R91.8 Other nonspecific abnormal finding of lung field
CPT/HCPCS: 71046

== ENCOUNTER → 2025-03-28 | Outpatient (CLI) | payer MEDICARE ==
--- NOTE | 2025-03-28 11:53 | P.PROGSL ---
Subjective DATE: 03/28/2025 FOLLOW UP VISIT. Patient with obstructive sleep apnea hypopnea syndrome return to sleep center for follow-up visit. Information from previous visit have been reviewed. Patient is using PAP equipment every night for the whole night, getting PAP supplies in time. The patient does not have significant problems with the mask, PAP unit and humidification. [place] sleepiness scale is 3, which is normal. I checked information from PAP unit. PAP unit pressure 5-13, average 8.8 cm H2O. Usage is 100% for more then 4 hours, average 7.2 hours per night. Leak is 25 l/m, which is in acceptable range. Apnea Hypopnea Index is 1.3, which is normal. MEDICATIONS: Olmesartanamlodipinehydrochlorothiazide, fenofibrate 200 mg once a day, rosuvastatin 10 mg once a day, meloxicam 7.5 mg once a day, Ozempic 2 mg once a week. During physical exam: GENERAL: A pleasant patient without any distress. VITAL SIGNS: BP 143/86, HR 95, RR 12, weight 233 pounds, temperature 98.1, oxygen saturation room air 94%, BMI 35.9. HEENT: PERRLA, EOMI.low position of soft palate, Mallapati 4 . NECK: Supple. No JVD. LUNGS: Clear to percussion and to auscultation. Good air exchange. No wheezing or rhonchi. HEART: S1, S2 regular. ABDOMEN: Soft and nontender. Obese EXTREMITIES: No clubbing or cyanosis. TRIMMER MACHINE OPERATOR: Awake, alert, and oriented x3. No focal deficit. Impressions: 1. Obstructive sleep apnea-hypopnea syndrome. Patient demonstrated great compliance with treatment, benefiting from treatment. 2. Obesity, BMI 35.9, patient increased weight on 6 pounds comparing with previous visit. 3. Hypertension. 4. Diabetes mellitus. 5. History of anxiety. 6. History of arthritis. 7. Hyperlipidemia. 8. Status post cholecystectomy. 9. Status post right knee surgery for meniscus problems. I explained to the patient how to adjust ramp time and humidity level. Plan: 1. Continue using PAP equipment every night for the whole night. 2. Sleep hygiene with regular time in bed for at least 7.5-8 hours 3. PAP unit should stay lower then position of the head. 4. Advised patient to remove all remaining water from humidifier canister daily and make it dry after each usage. Refill canister with fresh distilled water before each usage. 5. Watching and losing weight. 6. Precautions related to driving. No driving if feel any sleepiness. 7. I will maintain prescription for PAP supplies including mask, tube, filters. 8. Follow up visit in 12 months or earlier if patient has any problems. Thank you very much for allowing me to participate in the management of your patient. Rishi Reyes MD, PhD, FAASM. Diplomat of [place] [employer], Sleep Medicine Board by [place] [employer] [facility] Coordinator [facility] [place] Objective Home Medications: Home Medications Medication Instructions Recorded Confirmed Type Fenofibrate,Micronized 200 mg PO DAILY 04/17/19 01/10/24 History [Fenofibrate] Cholecalciferol [Vitamin D3 (25 50 mcg PO DAILY 09/15/20 01/10/24 History Mcg = 1000 Iu)] Olmesartan/Amlodipin/Hcthiazid 1 tab PO DAILY 09/15/20 01/10/24 History [Olmesartan/Amlodipin/Hcthiazid 40-5-12.5 MG] calcium polycarbophiL [Fiber-Lax] 625 mg PO DAILY 09/15/20 09/15/20 History Docusate [Colace] 100 mg PO BID #30 capsule 09/17/20 Rx HYDROcodone/APAP 5-325MG [[place] 1 tab PO Q6HR PRN 3 Days #12 tab 09/17/20 Rx 5-325] Escitalopram [Lexapro] 10 mg PO DAILY 01/10/24 01/10/24 History Rosuvastatin [Crestor] 10 mg PO DAILY 01/10/24 01/10/24 History
== END ==
LOC: 3 N SLEEP 11:18
PROVIDERS: ATTEND Internal Medicine
CPT/HCPCS: 99212